=== PATIENT | female | born 1945 | race Caucasian/White ===

== ENCOUNTER 2017-10-02 21:47 | Inpatient (IN) | payer MEDICARE, MEDICAID ==
[~2017-10-02] VITALS: Ht 157.5 cm; Wt 72.0 kg
[~2017-10-02 21:47] MED LIST: ATOR40TA71 PO; DONE23TA7 PO; FLUO10CA28 PO; FLUT1BLS3 PO; FURO-150 PO; GABA-338 PO; KEP500T PO; MONT10TA21 PO; ONDA4TAB6 PO; OXYB5TAB29 PO; PRIM50TA PO; SOTA80TA73 PO; SUMA50TA PO; TIOT18CA7 IH
[2017-10-02] MEDS ORDERED: normal saline 1000ML IV soln IV ONE (22:00)
[2017-10-02] MEDS ORDERED: TRIAMCINOLONE 55 MCG (22:03)
[2017-10-02] MEDS ORDERED: PREDNISONE 20 MG (22:03)
[2017-10-02] MEDS ORDERED: OXYBUTYNIN CHLORIDE 5 MG (22:03)
[2017-10-02] MEDS ORDERED: ONDANSETRON HCL 4 MG (22:03)
[2017-10-02] MEDS ORDERED: LEVETIRACETAM 500 MG (22:03)
[2017-10-02] MEDS ORDERED: APAP (22:03)
[2017-10-02] MEDS ORDERED: MONTELUKAST SODIUM 10 MG (22:03)
[2017-10-02] MEDS ORDERED: ATORVASTATIN CALCIUM 40 MG (22:03)
[2017-10-02] MEDS ORDERED: PANTOPRAZOLE SODIUM 40 MG (22:03)
[2017-10-02] MEDS ORDERED: OXYCODONE (22:03)
[2017-10-02] MEDS ORDERED: FLUOXETINE HCL 20 MG (22:03)
[2017-10-02] MEDS ORDERED: SUMATRIPTAN SUCCINAT (22:03)
[2017-10-02] MEDS ORDERED: MULTAQ 400 MG (22:03)
[2017-10-02] MEDS ORDERED: adenosine 3mg/ml 2ml vial IV ONE ×2 (22:10)
[2017-10-02 22:34] LABS: EOSINOPHILS # (AUTO) 0.3 X10'3 (0-0.9); HEMOGLOBIN 11.5 g/dl (12.0-16.0); LYMPHOCYTES # (AUTO) 1.8 X10'3 (1.1-4.8); NEUTROPHILS # (AUTO) 8.2 X10'3 (1.8-7.7); NEUTROPHILS % (AUTO) 72.1 % (42-75); RED BLOOD COUNT 4.53 X10'6 (4.20-5.60); WHITE BLOOD COUNT 11.4 X10'3 (4.5-11.0)
[2017-10-02 22:37] LABS: BASOPHILS % (AUTO) 0.4 % (0-1); EOSINOPHILS % (AUTO) 2.9 % (0-6); LYMPHOCYTES % (AUTO) 15.4 % (21-51); MEAN CORPUSCULAR HEMOGLOBIN 25.3 PG (27.0-31.0); MEAN CORPUSCULAR HGB CONC 32.8 % (33.0-36.5); MEAN CORPUSCULAR VOLUME 77.2 FL (78-98); MEAN PLATELET VOLUME 8.8 FL (7.4-10.4); MONOCYTES % (AUTO) 9.2 % (2-12); PLATELET COUNT 180 X10'3 (140-440); RED CELL DISTRIBUTION WIDTH 19.5 % (11.5-14.5)
[2017-10-02 22:43] LABS: INR 1.3 INR; PARTIAL THROMBOPLASTIN TIME 26 SECONDS (22-32); PROTHROMBIN TIME 13.7 SECONDS (9.0-12.0)
[2017-10-02 22:47] LABS: ANION GAP 11 (8-16); BILIRUBIN,TOTAL 0.2 MG/DL (0.1-1.0); BLOOD UREA NITROGEN 3 MG/DL (7-18); BUN/CREATININE RATIO 5.5 (6.6-38.0); CALCIUM 8.2 MG/DL (8.5-10.1); CHLORIDE 104 MMOL/L (99-107); CREATININE 0.55 MG/DL (0.40-0.90); GLUCOSE 104 MG/DL (70-104); MAGNESIUM 1.4 MG/DL (1.5-2.4); POTASSIUM 3.6 MMOL/L (3.5-5.1); SODIUM 139 MMOL/L (135-145); TOTAL CARBON DIOXIDE 23.9 MMOL/L (24-32); TOTAL PROTEIN 6.6 G/DL (6.4-8.2); eGFR > 90 ML/MIN
[2017-10-02 22:48] LABS: ALANINE AMINOTRANSFERASE 18 U/L (12-78); ALBUMIN 2.3 G/DL (3.4-5.0); ALBUMIN/GLOBULIN RATIO 0.5 (1.1-1.5); ALKALINE PHOSPHATASE 70 IU/L (46-116); ASPARTATE AMINO TRANSFERASE 29 U/L (10-37)
[2017-10-02 23:01] LABS: CLARITY,URINE CLEAR (Clear); COLOR,URINE YELLOW (Yellow); GLUCOSE, URINE NEGATIVE (Neg); KETONES,URINE >=80 mg/dl (Neg); LEUKOCYTE ESTERASE ,URINE NEGATIVE (Neg); NITRITES, URINE NEGATIVE (Neg); OCCULT BLOOD,URINE NEGATIVE (Neg); PROTEIN,URINE NEGATIVE (Neg); UROBILINOGEN,URINE 0.2 E.U/dL (0.2-1.0)
[2017-10-02 23:02] LABS: UA COLLECTION TYPE FOLEY CATH
[2017-10-03] MEDS ORDERED: DIPH25CA83 PO (00:20)
[2017-10-03] MEDS ORDERED: FERR-116 PO (00:20)
[2017-10-03] MEDS ORDERED: NA P133E4 RC (00:20)
[2017-10-03] MEDS ORDERED: FLUO20CA39 PO (00:20)
[2017-10-03] MEDS ORDERED: MAGN100T5 (00:20)
[2017-10-03] MEDS ORDERED: ATR0.5NEB NEB (00:20)
[2017-10-03] MEDS ORDERED: LACTC PO (00:20)
[2017-10-03] MEDS ORDERED: MAGN400O6 PO (00:20)
[2017-10-03] MEDS ORDERED: UMEC62.5 (00:20)
[2017-10-03] MEDS ORDERED: DULR RC (00:20)
[2017-10-03] MEDS ORDERED: MULT-1085 PO (00:28)
[2017-10-03] MEDS ORDERED: VANC1VIA21 IV (00:28)
[2017-10-03] MEDS ORDERED: ASCO500C15 PO (00:28)
[2017-10-03] MEDS ORDERED: CHOL4PAC19 (00:28)
[2017-10-03] MEDS ORDERED: FAMO-128 PO (00:28)
[2017-10-03] MEDS ORDERED: OXYC-145 PO (00:28)
[2017-10-03] MEDS ORDERED: VANC50SO PO (00:36)
[2017-10-03] MEDS ORDERED: levoFLOXACIN-Levaquin 750MG/D5 150 ML IV STA (01:06)
[2017-10-03] MEDS ORDERED: ondansetron/PF 4mg/2ml inj IV ONE (01:10)
[2017-10-03] MEDS ORDERED: normal saline 1000ml 1,000 ML IV SCH (01:43)
[2017-10-03] MEDS ORDERED: magnesium hydroxide 30ml (MOM) UD suspension PO PRN (01:45)
[2017-10-03] MEDS ORDERED: mag hydrox/Alum hydrox/simeth 30ml oral suspension PO PRN (01:45)
[2017-10-03] MEDS ORDERED: ondansetron/PF 4mg/2ml inj IV PRN (01:45)
[2017-10-03] MEDS ORDERED: acetaminophen 325mg tablet PO PRN (01:45)
[2017-10-03] MEDS ORDERED: vancomycin/NS 1 GM ADD-VANTAGE 250 ML IV ONE (02:15)
[2017-10-03 03:00] VITALS: BP 148/79
[2017-10-03] MEDS: oxyCODONE/APAP 5-325mg tablet PO SCH ×4 (03:51→19:52)
[2017-10-03 06:00] VITALS: BP 138/71
[2017-10-03] MEDS ORDERED: vancomycin 1,000mg inj IV SCH (08:00)
[2017-10-03] MEDS ORDERED: ipratropium 0.5 MG/2.5ML nebule IH SCH (08:00)
[2017-10-03] MEDS ORDERED: vancomycin 250MG/10ML UD oral solution 10ML BOTTLE PO SCH (08:00)
[2017-10-03] MEDS ORDERED: vancomcyin 250mg capsules PO SCH (08:00)
[2017-10-03] MEDS: sotalol 80mg tablet PO SCH ×2 (08:03→19:53)
[2017-10-03] MEDS: vancomycin/NS 1 GM ADD-VANTAGE 250 ML IV SCH ×2 (08:03→19:41)
[2017-10-03] MEDS: heparin, porcine 5000 units/ml vial SQ SCH ×2 (08:04→19:53)
[2017-10-03] MEDS: FLUoxetine 20mg capsule PO SCH (08:04)
[2017-10-03] MEDS: famotidine 20mg tablet PO SCH (08:04)
[2017-10-03] MEDS: levetiracetam 250mg tablet PO SCH ×2 (08:05→19:49)
[2017-10-03] MEDS: lactobacillus rhamnosus 10,000 MMU CELLS/CAPSULE PO SCH ×2 (08:05→19:51)
[2017-10-03] MEDS: oxybutynin 5mg tablet PO SCH ×2 (08:05→19:50)
[2017-10-03] MEDS: vancomcyin 250mg capsules PO SCH ×3 (08:09→19:51)
[2017-10-03] MEDS: methylPREDNISolone sod succ 125mg/2ml vial IV SCH ×3 (08:10→19:53)
[2017-10-03] MEDS: metroNIDAZOLE-Flagyl 500mg/NS 100 ML IV SCH ×2 (08:10→15:15)
[2017-10-03] MEDS: metoclopramide 5 mg/ml inj IV PRN ×3 (08:43→22:08)
[2017-10-03] MEDS ORDERED: UMEC62.5 IH (08:53)
[2017-10-03] MEDS ORDERED: MAGN400C PO (09:07)
[2017-10-03] MEDS ORDERED: adenosine 3mg/ml 2ml vial IV ONE (10:00)
[2017-10-03 11:00] VITALS: BP 136/68
[2017-10-03] MEDS: ipratropium/albuterol 3ml nebule NEB SCH ×4 (11:00→23:00)
[2017-10-03] MEDS: ondansetron/PF 4mg/2ml inj IV PRN ×2 (11:55→19:40)
[2017-10-03] MEDS: SUMAtriptan 25 MG tablet PO PRN (14:55)
[2017-10-03 15:00] VITALS: BP 170/76
[2017-10-03 19:00] VITALS: BP 151/78
[2017-10-03] MEDS: primidone 50mg tablet PO SCH (20:07)
[2017-10-03] MEDS: atorvastatin 20mg tablet PO SCH (20:07)
[2017-10-03] MEDS: montelukast 10mg tablet PO SCH (20:07)
[2017-10-03 21:00] VITALS: BP 153/81
[2017-10-03] MEDS ORDERED: sotalol 80mg tablet PO ONE (21:55)
[2017-10-04] MEDS: metroNIDAZOLE-Flagyl 500mg/NS 100 ML IV SCH ×3 (00:59→16:37)
[2017-10-04] MEDS: ondansetron/PF 4mg/2ml inj IV PRN ×2 (02:31→20:29)
[2017-10-04] MEDS: Potassium Cl inj 20 MEQ in normal saline 1000ml 1,000 ML IV SCH ×2 (02:31→14:21)
[2017-10-04] MEDS: vancomcyin 250mg capsules PO SCH ×4 (02:32→23:21)
[2017-10-04] MEDS: methylPREDNISolone sod succ 125mg/2ml vial IV SCH ×3 (02:32→13:28)
[2017-10-04] MEDS: oxyCODONE/APAP 5-325mg tablet PO SCH ×4 (02:33→20:29)
[2017-10-04 02:48] VITALS: BP 144/77
[2017-10-04] MEDS: metoclopramide 5 mg/ml inj IV PRN ×4 (05:15→22:58)
[2017-10-04] MEDS: SUMAtriptan 25 MG tablet PO PRN ×2 (05:16→14:38)
[2017-10-04 05:30] LABS: BASOPHILS % (AUTO) 0.2 % (0-1); EOSINOPHILS # (AUTO) 0.1 X10'3 (0-0.9); EOSINOPHILS % (AUTO) 0.8 % (0-6); HEMATOCRIT 33.9 % (35.0-45.0); HEMOGLOBIN 10.8 g/dl (12.0-16.0); LYMPHOCYTES # (AUTO) 1.2 X10'3 (1.1-4.8); MEAN CORPUSCULAR HEMOGLOBIN 24.8 PG (27.0-31.0); MEAN CORPUSCULAR HGB CONC 31.8 % (33.0-36.5); MEAN CORPUSCULAR VOLUME 77.9 FL (78-98); MEAN PLATELET VOLUME 8.6 FL (7.4-10.4); MONOCYTES # (AUTO) 0.3 X10'3 (0-0.9); NEUTROPHILS # (AUTO) 6.2 X10'3 (1.8-7.7); PLATELET COUNT 181 X10'3 (140-440); RED BLOOD COUNT 4.35 X10'6 (4.20-5.60); WHITE BLOOD COUNT 7.7 X10'3 (4.5-11.0)
[2017-10-04 06:00] VITALS: BP 140/75
[2017-10-04 06:12] LABS: ALANINE AMINOTRANSFERASE 17 U/L (12-78); ALBUMIN 2.2 G/DL (3.4-5.0); ALBUMIN/GLOBULIN RATIO 0.5 (1.1-1.5); ALKALINE PHOSPHATASE 60 IU/L (46-116); ANION GAP 11 (8-16); ASPARTATE AMINO TRANSFERASE 20 U/L (10-37); BILIRUBIN,TOTAL 0.2 MG/DL (0.1-1.0); BLOOD UREA NITROGEN 5 MG/DL (7-18); BUN/CREATININE RATIO 9.1 (6.6-38.0); CALCIUM 8.5 MG/DL (8.5-10.1); CHLORIDE 107 MMOL/L (99-107); CREATININE 0.55 MG/DL (0.40-0.90); GLUCOSE 110 MG/DL (70-104); POTASSIUM 3.8 MMOL/L (3.5-5.1); SODIUM 142 MMOL/L (135-145); TOTAL CARBON DIOXIDE 24.2 MMOL/L (24-32); TOTAL PROTEIN 6.3 G/DL (6.4-8.2); eGFR > 90 ML/MIN
[2017-10-04] MEDS: ipratropium/albuterol 3ml nebule NEB SCH ×4 (07:00→23:00)
[2017-10-04] MEDS: lactobacillus rhamnosus 10,000 MMU CELLS/CAPSULE PO SCH ×2 (07:32→22:58)
[2017-10-04] MEDS: oxybutynin 5mg tablet PO SCH ×2 (07:32→23:21)
[2017-10-04] MEDS: FLUoxetine 20mg capsule PO SCH (07:32)
[2017-10-04] MEDS: famotidine 20mg tablet PO SCH (07:32)
[2017-10-04] MEDS: sotalol 80mg tablet PO SCH ×2 (07:32→22:59)
[2017-10-04] MEDS: levetiracetam 250mg tablet PO SCH ×2 (07:33→23:00)
[2017-10-04] MEDS: heparin, porcine 5000 units/ml vial SQ SCH ×2 (07:35→23:25)
[2017-10-04] MEDS: vancomycin/NS 1 GM ADD-VANTAGE 250 ML IV SCH ×2 (07:35→20:30)
[2017-10-04] MEDS ORDERED: sotalol 80mg tablet PO SCH (08:00)
[2017-10-04 11:00] VITALS: BP 121/63
[2017-10-04 15:00] VITALS: BP 166/78
[2017-10-04] MEDS: predniSONE 20 mg tablet PO SCH (16:37)
[2017-10-04] MEDS: chloestyramine/aspartame 4gm packet PO SCH ×2 (16:37→21:00)
[2017-10-04] MEDS ORDERED: VANCOMYCIN LEVEL IV ONE (18:30)
[2017-10-04 22:00] VITALS: BP 152/77
[2017-10-04] MEDS: atorvastatin 20mg tablet PO SCH (22:59)
[2017-10-04] MEDS: montelukast 10mg tablet PO SCH (23:00)
[2017-10-04] MEDS: primidone 50mg tablet PO SCH (23:22)
[2017-10-05] MEDS: metroNIDAZOLE-Flagyl 500mg/NS 100 ML IV SCH ×2 (00:48→07:22)
[2017-10-05] MEDS: oxyCODONE/APAP 5-325mg tablet PO SCH ×4 (02:00→19:54)
[2017-10-05] MEDS: vancomcyin 250mg capsules PO SCH ×4 (02:00→19:52)
[2017-10-05] MEDS: Potassium Cl inj 20 MEQ in normal saline 1000ml 1,000 ML IV SCH ×2 (02:59→15:37)
[2017-10-05 03:00] VITALS: BP 147/77
[2017-10-05] MEDS: ipratropium/albuterol 3ml nebule NEB SCH ×4 (03:00→23:00)
[2017-10-05 05:15] LABS: BASOPHILS % (AUTO) 0.2 % (0-1); EOSINOPHILS # (AUTO) 0.1 X10'3 (0-0.9); EOSINOPHILS % (AUTO) 0.7 % (0-6); HEMATOCRIT 30.8 % (35.0-45.0); LYMPHOCYTES # (AUTO) 1.7 X10'3 (1.1-4.8); LYMPHOCYTES % (AUTO) 14.2 % (21-51); MEAN CORPUSCULAR HGB CONC 32.4 % (33.0-36.5); MEAN CORPUSCULAR VOLUME 77.4 FL (78-98); MONOCYTES # (AUTO) 0.8 X10'3 (0-0.9); MONOCYTES % (AUTO) 6.7 % (2-12); NEUTROPHILS # (AUTO) 9.4 X10'3 (1.8-7.7); NEUTROPHILS % (AUTO) 78.2 % (42-75); PLATELET COUNT 200 X10'3 (140-440); RED BLOOD COUNT 3.98 X10'6 (4.20-5.60); WHITE BLOOD COUNT 12.1 X10'3 (4.5-11.0)
[2017-10-05 05:29] LABS: ALANINE AMINOTRANSFERASE 17 U/L (12-78); ALBUMIN 2.1 G/DL (3.4-5.0); ALBUMIN/GLOBULIN RATIO 0.6 (1.1-1.5); ALKALINE PHOSPHATASE 49 IU/L (46-116); ANION GAP 10 (8-16); ASPARTATE AMINO TRANSFERASE 21 U/L (10-37); BILIRUBIN,TOTAL 0.2 MG/DL (0.1-1.0); BLOOD UREA NITROGEN 9 MG/DL (7-18); BUN/CREATININE RATIO 15.8 (6.6-38.0); CALCIUM 8.2 MG/DL (8.5-10.1); CHLORIDE 110 MMOL/L (99-107); CREATININE 0.57 MG/DL (0.40-0.90); GLUCOSE 89 MG/DL (70-104); POTASSIUM 3.5 MMOL/L (3.5-5.1); SODIUM 144 MMOL/L (135-145); TOTAL CARBON DIOXIDE 23.7 MMOL/L (24-32); TOTAL PROTEIN 5.7 G/DL (6.4-8.2); eGFR > 90 ML/MIN
[2017-10-05 06:00] VITALS: BP 159/76
[2017-10-05] MEDS: lactobacillus rhamnosus 10,000 MMU CELLS/CAPSULE PO SCH ×2 (07:20→19:52)
[2017-10-05] MEDS: sotalol 80mg tablet PO SCH ×2 (07:20→19:54)
[2017-10-05] MEDS: FLUoxetine 20mg capsule PO SCH (07:20)
[2017-10-05] MEDS: famotidine 20mg tablet PO SCH (07:20)
[2017-10-05] MEDS: oxybutynin 5mg tablet PO SCH ×2 (07:20→19:54)
[2017-10-05] MEDS: levetiracetam 250mg tablet PO SCH ×2 (07:21→19:52)
[2017-10-05] MEDS: heparin, porcine 5000 units/ml vial SQ SCH ×2 (07:22→19:51)
[2017-10-05] MEDS: vancomycin/NS 1 GM ADD-VANTAGE 250 ML IV SCH (07:23)
[2017-10-05] MEDS: predniSONE 20 mg tablet PO SCH (07:27)
[2017-10-05] MEDS: metoclopramide 5 mg/ml inj IV PRN ×2 (07:55→19:48)
[2017-10-05] MEDS: chloestyramine/aspartame 4gm packet PO SCH ×3 (08:00→20:15)
[2017-10-05 11:00] VITALS: BP 147/81
[2017-10-05] MEDS: vancomycin inj 1,250 MG in normal saline 250ml IV soln 250 ML IV SCH ×2 (11:00→23:21)
[2017-10-05] MEDS: SUMAtriptan 25 MG tablet PO PRN (14:25)
[2017-10-05 15:00] VITALS: BP 164/77
[2017-10-05] MEDS: metroNIDAZOLE 500mg tablet PO SCH ×2 (16:35→23:20)
[2017-10-05 19:00] VITALS: BP 167/85
[2017-10-05] MEDS: atorvastatin 20mg tablet PO SCH (20:17)
[2017-10-05] MEDS: primidone 50mg tablet PO SCH (20:18)
[2017-10-05] MEDS: montelukast 10mg tablet PO SCH (20:18)
[2017-10-05 23:00] VITALS: BP 149/72
[2017-10-05] MEDS: diphenhydrAMINE 25mg capsule PO PRN (23:20)
[2017-10-06] MEDS: vancomcyin 250mg capsules PO SCH ×4 (02:08→19:14)
[2017-10-06] MEDS: oxyCODONE/APAP 5-325mg tablet PO SCH ×4 (02:09→19:15)
[2017-10-06 03:00] VITALS: BP 164/75
[2017-10-06] MEDS: ipratropium/albuterol 3ml nebule NEB SCH ×6 (03:00→23:00)
[2017-10-06 06:00] VITALS: BP 152/77
[2017-10-06] MEDS: Potassium Cl inj 20 MEQ in normal saline 1000ml 1,000 ML IV SCH ×2 (06:00→22:01)
[2017-10-06] MEDS: lactobacillus rhamnosus 10,000 MMU CELLS/CAPSULE PO SCH ×2 (07:56→19:15)
[2017-10-06] MEDS: oxybutynin 5mg tablet PO SCH ×2 (07:56→19:15)
[2017-10-06] MEDS: sotalol 80mg tablet PO SCH ×2 (07:56→19:15)
[2017-10-06] MEDS: levetiracetam 250mg tablet PO SCH ×2 (07:56→19:15)
[2017-10-06] MEDS: FLUoxetine 20mg capsule PO SCH (07:56)
[2017-10-06] MEDS: famotidine 20mg tablet PO SCH (07:56)
[2017-10-06] MEDS: metroNIDAZOLE 500mg tablet PO SCH ×2 (07:56→15:08)
[2017-10-06] MEDS: heparin, porcine 5000 units/ml vial SQ SCH ×2 (07:58→19:14)
[2017-10-06] MEDS: chloestyramine/aspartame 4gm packet PO SCH ×3 (08:00→21:53)
[2017-10-06] MEDS: metoclopramide 5 mg/ml inj IV PRN ×2 (08:04→19:14)
[2017-10-06] MEDS ORDERED: predniSONE 20 mg tablet PO SCH (08:30)
[2017-10-06 09:57] LABS: BASOPHILS # (AUTO) 0.1 X10'3 (0-0.2); BASOPHILS % (AUTO) 1.8 % (0-1); EOSINOPHILS # (AUTO) 0.1 X10'3 (0-0.9); HEMOGLOBIN 10.7 g/dl (12.0-16.0); LYMPHOCYTES # (AUTO) 1.8 X10'3 (1.1-4.8); LYMPHOCYTES % (AUTO) 23.8 % (21-51); MEAN CORPUSCULAR HEMOGLOBIN 24.9 PG (27.0-31.0); MEAN CORPUSCULAR HGB CONC 31.4 % (33.0-36.5); MEAN CORPUSCULAR VOLUME 79.4 FL (78-98); MEAN PLATELET VOLUME 8.9 FL (7.4-10.4); MONOCYTES # (AUTO) 0.8 X10'3 (0-0.9); MONOCYTES % (AUTO) 10.1 % (2-12); NEUTROPHILS % (AUTO) 63.3 % (42-75); PLATELET COUNT 150 X10'3 (140-440); RED BLOOD COUNT 4.28 X10'6 (4.20-5.60); RED CELL DISTRIBUTION WIDTH 19.8 % (11.5-14.5); WHITE BLOOD COUNT 7.8 X10'3 (4.5-11.0)
[2017-10-06 10:27] LABS: ALANINE AMINOTRANSFERASE 21 U/L (12-78); ALBUMIN 2.1 G/DL (3.4-5.0); ALBUMIN/GLOBULIN RATIO 0.6 (1.1-1.5); ALKALINE PHOSPHATASE 50 IU/L (46-116); ANION GAP 5 (8-16); ASPARTATE AMINO TRANSFERASE 28 U/L (10-37); BILIRUBIN,TOTAL 0.2 MG/DL (0.1-1.0); BLOOD UREA NITROGEN 5 MG/DL (7-18); BUN/CREATININE RATIO 9.4 (6.6-38.0); CALCIUM 7.6 MG/DL (8.5-10.1); CHLORIDE 108 MMOL/L (99-107); CREATININE 0.53 MG/DL (0.40-0.90); GLUCOSE 91 MG/DL (70-104); POTASSIUM 3.2 MMOL/L (3.5-5.1); SODIUM 140 MMOL/L (135-145); TOTAL CARBON DIOXIDE 26.6 MMOL/L (24-32); TOTAL PROTEIN 5.8 G/DL (6.4-8.2); eGFR > 90 ML/MIN
[2017-10-06 11:00] VITALS: BP 149/76
[2017-10-06] MEDS: vancomycin inj 1,250 MG in normal saline 250ml IV soln 250 ML IV SCH (11:16)
[2017-10-06 15:00] VITALS: BP 171/87
[2017-10-06] MEDS: SUMAtriptan 25 MG tablet PO PRN (15:09)
[2017-10-06 19:00] VITALS: BP 185/92
[2017-10-06] MEDS: primidone 50mg tablet PO SCH (21:52)
[2017-10-06] MEDS: montelukast 10mg tablet PO SCH (21:53)
[2017-10-06] MEDS: atorvastatin 20mg tablet PO SCH (21:53)
[2017-10-06] MEDS ORDERED: VANCOMYCIN LEVEL IV ONE (22:30)
[2017-10-06] MEDS: diphenhydrAMINE 25mg capsule PO PRN (22:30)
[2017-10-06 23:00] VITALS: BP 150/75
[2017-10-07] MEDS: ipratropium/albuterol 3ml nebule NEB SCH ×6 (00:12→23:00)
[2017-10-07] MEDS: metoclopramide 5 mg/ml inj IV PRN ×2 (01:09→17:33)
[2017-10-07] MEDS: vancomcyin 250mg capsules PO SCH ×4 (01:10→20:25)
[2017-10-07] MEDS: oxyCODONE/APAP 5-325mg tablet PO SCH ×4 (01:10→20:27)
[2017-10-07] MEDS: metroNIDAZOLE 500mg tablet PO SCH ×3 (01:10→15:28)
[2017-10-07 03:00] VITALS: BP 142/76
[2017-10-07] MEDS: ondansetron/PF 4mg/2ml inj IV PRN ×2 (05:13→20:25)
[2017-10-07] MEDS: SUMAtriptan 25 MG tablet PO PRN ×2 (05:15→20:51)
[2017-10-07] MEDS: Potassium Cl inj 20 MEQ in normal saline 1000ml 1,000 ML IV SCH (05:31)
[2017-10-07 05:40] LABS: ALANINE AMINOTRANSFERASE 20 U/L (12-78); ALBUMIN 2.1 G/DL (3.4-5.0); ALBUMIN/GLOBULIN RATIO 0.5 (1.1-1.5); ALKALINE PHOSPHATASE 49 IU/L (46-116); ANION GAP 8 (8-16); ASPARTATE AMINO TRANSFERASE 26 U/L (10-37); BILIRUBIN,TOTAL 0.2 MG/DL (0.1-1.0); BLOOD UREA NITROGEN 4 MG/DL (7-18); BUN/CREATININE RATIO 7.5 (6.6-38.0); CALCIUM 7.9 MG/DL (8.5-10.1); CHLORIDE 105 MMOL/L (99-107); CREATININE 0.53 MG/DL (0.40-0.90); GLUCOSE 83 MG/DL (70-104); POTASSIUM 3.1 MMOL/L (3.5-5.1); SODIUM 140 MMOL/L (135-145); TOTAL CARBON DIOXIDE 27.2 MMOL/L (24-32); eGFR > 90 ML/MIN
[2017-10-07 06:00] VITALS: BP 165/85
[2017-10-07] MEDS: FLUoxetine 20mg capsule PO SCH (07:41)
[2017-10-07] MEDS: lactobacillus rhamnosus 10,000 MMU CELLS/CAPSULE PO SCH ×2 (07:42→20:25)
[2017-10-07] MEDS: sotalol 80mg tablet PO SCH ×2 (07:42→20:23)
[2017-10-07] MEDS: famotidine 20mg tablet PO SCH (07:42)
[2017-10-07] MEDS: oxybutynin 5mg tablet PO SCH ×2 (07:42→20:18)
[2017-10-07] MEDS: heparin, porcine 5000 units/ml vial SQ SCH ×2 (07:43→20:21)
[2017-10-07] MEDS: levetiracetam 250mg tablet PO SCH ×2 (07:43→20:24)
[2017-10-07] MEDS: chloestyramine/aspartame 4gm packet PO SCH ×3 (08:00→20:18)
[2017-10-07] MEDS ORDERED: prednisone 10mg tablet PO SCH (08:30)
[2017-10-07 11:00] VITALS: BP 137/81
[2017-10-07] MEDS ORDERED: potassium Cl 20 mEq SR tablet PO PRN (12:45)
[2017-10-07] MEDS ORDERED: magnesium Cl slow-release 64mg tablet PO PRN (12:45)
[2017-10-07] MEDS ORDERED: potassium Cl 40MEQ/NS 500ml 500 ML IV PRN ×2 (12:45)
[2017-10-07] MEDS ORDERED: magnesium 4gm in 100ml NS 100 ML IV PRN (12:45)
[2017-10-07] MEDS ORDERED: magnesium/D5W IVPB 100 ML IV PRN (12:45)
[2017-10-07] MEDS: amLODIPine 5mg tablet PO SCH (14:02)
[2017-10-07] MEDS: potassium cl 20mEq in 1/2 NS 1,000 ML IV SCH (14:03)
[2017-10-07 15:00] VITALS: BP 138/80
[2017-10-07] MEDS: potassium Cl 20 mEq SR tablet PO PRN ×2 (17:33→21:55)
[2017-10-07 19:00] VITALS: BP 148/90
[2017-10-07] MEDS: primidone 50mg tablet PO SCH (20:22)
[2017-10-07] MEDS: montelukast 10mg tablet PO SCH (20:24)
[2017-10-07] MEDS: atorvastatin 20mg tablet PO SCH (20:25)
[2017-10-07 23:00] VITALS: BP 150/78
[2017-10-08] MEDS: metroNIDAZOLE 500mg tablet PO SCH ×3 (01:12→16:51)
[2017-10-08] MEDS: vancomcyin 250mg capsules PO SCH ×4 (01:12→20:44)
[2017-10-08] MEDS: oxyCODONE/APAP 5-325mg tablet PO SCH ×4 (01:12→20:44)
[2017-10-08] MEDS: potassium Cl 20 mEq SR tablet PO PRN (01:12)
[2017-10-08 03:00] VITALS: BP 141/71
[2017-10-08] MEDS: ipratropium/albuterol 3ml nebule NEB SCH ×6 (03:00→23:00)
[2017-10-08] MEDS: potassium cl 20mEq in 1/2 NS 1,000 ML IV SCH ×3 (05:06→20:53)
[2017-10-08 05:47] LABS: ALANINE AMINOTRANSFERASE 19 U/L (12-78); ALBUMIN 2.2 G/DL (3.4-5.0); ALBUMIN/GLOBULIN RATIO 0.6 (1.1-1.5); ALKALINE PHOSPHATASE 49 IU/L (46-116); ANION GAP 7 (8-16); ASPARTATE AMINO TRANSFERASE 24 U/L (10-37); BILIRUBIN,TOTAL 0.2 MG/DL (0.1-1.0); BLOOD UREA NITROGEN 5 MG/DL (7-18); BUN/CREATININE RATIO 9.6 (6.6-38.0); CALCIUM 7.8 MG/DL (8.5-10.1); CHLORIDE 106 MMOL/L (99-107); CREATININE 0.52 MG/DL (0.40-0.90); GLUCOSE 88 MG/DL (70-104); MAGNESIUM 1.7 MG/DL (1.5-2.4); SODIUM 139 MMOL/L (135-145); TOTAL CARBON DIOXIDE 25.8 MMOL/L (24-32); TOTAL PROTEIN 5.9 G/DL (6.4-8.2); eGFR > 90 ML/MIN
[2017-10-08 06:00] VITALS: BP 148/83
[2017-10-08] MEDS: FLUoxetine 20mg capsule PO SCH (07:52)
[2017-10-08] MEDS: levetiracetam 250mg tablet PO SCH ×2 (07:52→20:46)
[2017-10-08] MEDS: oxybutynin 5mg tablet PO SCH ×2 (07:52→20:44)
[2017-10-08] MEDS: amLODIPine 5mg tablet PO SCH (07:52)
[2017-10-08] MEDS: sotalol 80mg tablet PO SCH ×2 (07:52→20:44)
[2017-10-08] MEDS: lactobacillus rhamnosus 10,000 MMU CELLS/CAPSULE PO SCH ×2 (07:53→20:46)
[2017-10-08] MEDS: predniSONE 5mg tablet PO SCH (07:53)
[2017-10-08] MEDS: ondansetron/PF 4mg/2ml inj IV PRN ×2 (07:54→16:51)
[2017-10-08] MEDS: chloestyramine/aspartame 4gm packet PO SCH ×3 (07:54→20:38)
[2017-10-08] MEDS: heparin, porcine 5000 units/ml vial SQ SCH ×2 (07:54→20:43)
[2017-10-08] MEDS: famotidine 20mg tablet PO SCH (08:04)
[2017-10-08 11:00] VITALS: BP 145/74
[2017-10-08] MEDS: metoclopramide 5 mg/ml inj IV PRN ×2 (11:52→20:43)
[2017-10-08] MEDS ORDERED: morphine 4 MG/ML inj SYRINge IV PRN (12:05)
[2017-10-08] MEDS: SUMAtriptan 25 MG tablet PO PRN ×2 (13:38→21:16)
[2017-10-08 15:00] VITALS: BP 151/68
[2017-10-08 19:00] VITALS: BP 153/67
[2017-10-08] MEDS: diatr meglu/diatrizoate 30ml oral sol.-(3 dose) bottle PO SCH (20:45)
[2017-10-08] MEDS: montelukast 10mg tablet PO SCH (20:46)
[2017-10-08] MEDS: primidone 50mg tablet PO SCH (20:46)
[2017-10-08] MEDS: atorvastatin 20mg tablet PO SCH (20:46)
[2017-10-08] MEDS ORDERED: ondansetron/PF 4mg/2ml inj IV PRN (22:15)
[2017-10-08] MEDS ORDERED: LORazepam 1 MG tablet PO PRN (22:25)
[2017-10-08 23:00] VITALS: BP 138/75
[2017-10-09] MEDS: pantoprazole 40 MG vial IV SCH ×3 (01:06→16:51)
[2017-10-09] MEDS: methylPREDNISolone sod succ 125mg/2ml vial IV SCH ×3 (01:07→16:51)
[2017-10-09] MEDS: vancomcyin 250mg capsules PO SCH ×4 (01:07→19:57)
[2017-10-09] MEDS: metroNIDAZOLE 500mg tablet PO SCH ×3 (01:07→16:51)
[2017-10-09] MEDS: oxyCODONE/APAP 5-325mg tablet PO SCH ×4 (01:19→19:56)
[2017-10-09 03:00] VITALS: BP 149/75
[2017-10-09] MEDS: ipratropium/albuterol 3ml nebule NEB SCH ×6 (03:00→23:00)
[2017-10-09] MEDS: diphenhydrAMINE 25mg capsule PO PRN (04:15)
[2017-10-09 05:33] LABS: BASOPHILS % (AUTO) 0 % (0-1); EOSINOPHILS # (AUTO) 0.1 X10'3 (0-0.9); EOSINOPHILS % (AUTO) 1.5 % (0-6); HEMATOCRIT 38.9 % (35.0-45.0); HEMOGLOBIN 12.7 g/dl (12.0-16.0); LYMPHOCYTES # (AUTO) 1.1 X10'3 (1.1-4.8); MEAN CORPUSCULAR HEMOGLOBIN 25.4 PG (27.0-31.0); MEAN CORPUSCULAR HGB CONC 32.6 % (33.0-36.5); MEAN CORPUSCULAR VOLUME 77.9 FL (78-98); MEAN PLATELET VOLUME 8.9 FL (7.4-10.4); MONOCYTES # (AUTO) 0.1 X10'3 (0-0.9); MONOCYTES % (AUTO) 1.2 % (2-12); NEUTROPHILS # (AUTO) 8.8 X10'3 (1.8-7.7); NEUTROPHILS % (AUTO) 86.3 % (42-75); PLATELET COUNT 227 X10'3 (140-440); WHITE BLOOD COUNT 10.1 X10'3 (4.5-11.0)
[2017-10-09 05:40] LABS: ALANINE AMINOTRANSFERASE 24 U/L (12-78); ALBUMIN 2.7 G/DL (3.4-5.0); ALBUMIN/GLOBULIN RATIO 0.7 (1.1-1.5); ALKALINE PHOSPHATASE 60 IU/L (46-116); ANION GAP 8 (8-16); ASPARTATE AMINO TRANSFERASE 24 U/L (10-37); BILIRUBIN,TOTAL 0.3 MG/DL (0.1-1.0); BLOOD UREA NITROGEN 3 MG/DL (7-18); BUN/CREATININE RATIO 4.6 (6.6-38.0); CALCIUM 8.7 MG/DL (8.5-10.1); CHLORIDE 104 MMOL/L (99-107); CREATININE 0.65 MG/DL (0.40-0.90); GLUCOSE 168 MG/DL (70-104); MAGNESIUM 1.5 MG/DL (1.5-2.4); POTASSIUM 4.6 MMOL/L (3.5-5.1); SODIUM 137 MMOL/L (135-145); TOTAL CARBON DIOXIDE 25.3 MMOL/L (24-32); TOTAL PROTEIN 6.8 G/DL (6.4-8.2); eGFR 89 ML/MIN
[2017-10-09 06:00] VITALS: BP 144/77
[2017-10-09] MEDS: chloestyramine/aspartame 4gm packet PO SCH ×3 (08:00→19:50)
[2017-10-09] MEDS: levetiracetam 250mg tablet PO SCH ×2 (08:09→19:55)
[2017-10-09] MEDS: diatr meglu/diatrizoate 30ml oral sol.-(3 dose) bottle PO SCH ×2 (08:09→09:15)
[2017-10-09] MEDS: famotidine 20mg tablet PO SCH (08:09)
[2017-10-09] MEDS: sotalol 80mg tablet PO SCH ×2 (08:09→19:53)
[2017-10-09] MEDS: amLODIPine 5mg tablet PO SCH (08:10)
[2017-10-09] MEDS: oxybutynin 5mg tablet PO SCH ×2 (08:10→19:52)
[2017-10-09] MEDS: FLUoxetine 20mg capsule PO SCH (08:10)
[2017-10-09] MEDS: lactobacillus rhamnosus 10,000 MMU CELLS/CAPSULE PO SCH ×2 (08:10→20:00)
[2017-10-09] MEDS: predniSONE 5mg tablet PO SCH (08:10)
[2017-10-09] MEDS: metoclopramide 5 mg/ml inj IV PRN ×2 (08:11→16:51)
[2017-10-09] MEDS: heparin, porcine 5000 units/ml vial SQ SCH ×2 (08:11→19:58)
[2017-10-09 12:35] VITALS: BP 131/79
[2017-10-09] MEDS: ondansetron/PF 4mg/2ml inj IV PRN (14:38)
[2017-10-09] MEDS: potassium cl 20mEq in 1/2 NS 1,000 ML IV SCH (14:38)
[2017-10-09 15:00] VITALS: BP 133/70
[2017-10-09 19:00] VITALS: BP 139/74
[2017-10-09] MEDS: primidone 50mg tablet PO SCH (19:53)
[2017-10-09] MEDS: proCHLORperazine 10 MG/2 ml inj IV PRN (19:54)
[2017-10-09] MEDS: montelukast 10mg tablet PO SCH (19:56)
[2017-10-09] MEDS: atorvastatin 20mg tablet PO SCH (19:56)
[2017-10-09] MEDS: SUMAtriptan 25 MG tablet PO PRN (20:33)
[2017-10-09 23:00] VITALS: BP 156/69
[2017-10-10] MEDS: pantoprazole 40 MG vial IV SCH ×3 (00:19→15:59)
[2017-10-10] MEDS: metoclopramide 5 mg/ml inj IV PRN ×2 (00:19→15:59)
[2017-10-10] MEDS: metroNIDAZOLE 500mg tablet PO SCH ×3 (00:19→15:59)
[2017-10-10] MEDS: methylPREDNISolone sod succ 125mg/2ml vial IV SCH ×3 (00:19→15:59)
[2017-10-10 03:00] VITALS: BP 133/68
[2017-10-10] MEDS: vancomcyin 250mg capsules PO SCH ×4 (03:16→20:33)
[2017-10-10] MEDS: potassium cl 20mEq in 1/2 NS 1,000 ML IV SCH ×2 (03:16→22:40)
[2017-10-10] MEDS: oxyCODONE/APAP 5-325mg tablet PO SCH ×4 (03:17→20:34)
[2017-10-10] MEDS: ondansetron/PF 4mg/2ml inj IV PRN ×2 (03:17→20:38)
[2017-10-10] MEDS: ipratropium/albuterol 3ml nebule NEB SCH ×6 (03:44→23:00)
[2017-10-10 05:28] LABS: BASOPHILS % (AUTO) 0 % (0-1); EOSINOPHILS % (AUTO) 0.1 % (0-6); HEMATOCRIT 36.5 % (35.0-45.0); HEMOGLOBIN 11.9 g/dl (12.0-16.0); LYMPHOCYTES % (AUTO) 5.9 % (21-51); MEAN CORPUSCULAR HEMOGLOBIN 25.5 PG (27.0-31.0); MEAN CORPUSCULAR HGB CONC 32.7 % (33.0-36.5); MEAN PLATELET VOLUME 9.1 FL (7.4-10.4); MONOCYTES # (AUTO) 0.2 X10'3 (0-0.9); MONOCYTES % (AUTO) 1.3 % (2-12); NEUTROPHILS # (AUTO) 15.9 X10'3 (1.8-7.7); NEUTROPHILS % (AUTO) 92.7 % (42-75); PLATELET COUNT 237 X10'3 (140-440); RED BLOOD COUNT 4.67 X10'6 (4.20-5.60); RED CELL DISTRIBUTION WIDTH 21.3 % (11.5-14.5); WHITE BLOOD COUNT 17.1 X10'3 (4.5-11.0)
[2017-10-10 05:42] LABS: ALANINE AMINOTRANSFERASE 21 U/L (12-78); ALBUMIN 2.5 G/DL (3.4-5.0); ALBUMIN/GLOBULIN RATIO 0.6 (1.1-1.5); ALKALINE PHOSPHATASE 52 IU/L (46-116); ANION GAP 9 (8-16); ASPARTATE AMINO TRANSFERASE 17 U/L (10-37); BILIRUBIN,TOTAL 0.3 MG/DL (0.1-1.0); BLOOD UREA NITROGEN 8 MG/DL (7-18); BUN/CREATININE RATIO 12.1 (6.6-38.0); CALCIUM 8.5 MG/DL (8.5-10.1); CHLORIDE 104 MMOL/L (99-107); CREATININE 0.66 MG/DL (0.40-0.90); GLUCOSE 146 MG/DL (70-104); MAGNESIUM 1.6 MG/DL (1.5-2.4); POTASSIUM 4.3 MMOL/L (3.5-5.1); SODIUM 139 MMOL/L (135-145); TOTAL CARBON DIOXIDE 26.5 MMOL/L (24-32); TOTAL PROTEIN 6.4 G/DL (6.4-8.2); eGFR 88 ML/MIN
[2017-10-10 06:00] VITALS: BP 119/64
[2017-10-10] MEDS: sotalol 80mg tablet PO SCH ×2 (08:56→20:35)
[2017-10-10] MEDS: amLODIPine 5mg tablet PO SCH (08:56)
[2017-10-10] MEDS: levetiracetam 250mg tablet PO SCH ×2 (08:56→20:35)
[2017-10-10] MEDS: lactobacillus rhamnosus 10,000 MMU CELLS/CAPSULE PO SCH ×2 (08:56→20:32)
[2017-10-10] MEDS: FLUoxetine 20mg capsule PO SCH (08:56)
[2017-10-10] MEDS: predniSONE 5mg tablet PO SCH (08:56)
[2017-10-10] MEDS: famotidine 20mg tablet PO SCH (08:56)
[2017-10-10] MEDS: heparin, porcine 5000 units/ml vial SQ SCH ×2 (08:57→20:38)
[2017-10-10] MEDS: chloestyramine/aspartame 4gm packet PO SCH ×3 (08:57→20:33)
[2017-10-10] MEDS: proCHLORperazine 10 MG/2 ml inj IV PRN (08:57)
[2017-10-10] MEDS: oxybutynin 5mg tablet PO SCH ×2 (08:58→20:33)
[2017-10-10 11:00] VITALS: BP 127/73
[2017-10-10] MEDS: SUMAtriptan 25 MG tablet PO PRN ×2 (13:11→22:32)
[2017-10-10 15:00] VITALS: BP 127/74
[2017-10-10 19:00] VITALS: BP 144/69
[2017-10-10] MEDS: montelukast 10mg tablet PO SCH (20:33)
[2017-10-10] MEDS: primidone 50mg tablet PO SCH (20:37)
[2017-10-10] MEDS: atorvastatin 20mg tablet PO SCH (20:48)
[2017-10-10 23:00] VITALS: BP 135/68
[2017-10-10] MEDS: diphenhydrAMINE 25mg capsule PO PRN (23:41)
[2017-10-11] MEDS: oxyCODONE/APAP 5-325mg tablet PO SCH ×3 (01:19→14:06)
[2017-10-11] MEDS: metroNIDAZOLE 500mg tablet PO SCH ×2 (01:20→08:28)
[2017-10-11] MEDS: vancomcyin 250mg capsules PO SCH ×3 (01:20→14:06)
[2017-10-11] MEDS: methylPREDNISolone sod succ 125mg/2ml vial IV SCH ×2 (01:20→08:28)
[2017-10-11] MEDS: pantoprazole 40 MG vial IV SCH ×2 (01:20→08:28)
[2017-10-11 03:00] VITALS: BP 146/67
[2017-10-11] MEDS: ipratropium/albuterol 3ml nebule NEB SCH ×3 (03:00→11:00)
[2017-10-11 06:00] VITALS: BP 140/76
[2017-10-11 07:15] LABS: BASOPHILS % (AUTO) 0.1 % (0-1); EOSINOPHILS % (AUTO) 0 % (0-6); HEMATOCRIT 35.4 % (35.0-45.0); HEMOGLOBIN 11.4 g/dl (12.0-16.0); LYMPHOCYTES # (AUTO) 0.9 X10'3 (1.1-4.8); LYMPHOCYTES % (AUTO) 5.4 % (21-51); MEAN CORPUSCULAR HEMOGLOBIN 25.1 PG (27.0-31.0); MEAN CORPUSCULAR HGB CONC 32.1 % (33.0-36.5); MEAN CORPUSCULAR VOLUME 78.4 FL (78-98); MEAN PLATELET VOLUME 8.9 FL (7.4-10.4); MONOCYTES # (AUTO) 0.1 X10'3 (0-0.9); MONOCYTES % (AUTO) 0.5 % (2-12); PLATELET COUNT 235 X10'3 (140-440); RED BLOOD COUNT 4.52 X10'6 (4.20-5.60); RED CELL DISTRIBUTION WIDTH 21.8 % (11.5-14.5)
[2017-10-11 07:34] LABS: ALANINE AMINOTRANSFERASE 18 U/L (12-78); ALBUMIN 2.4 G/DL (3.4-5.0); ALBUMIN/GLOBULIN RATIO 0.7 (1.1-1.5); ALKALINE PHOSPHATASE 49 IU/L (46-116); ANION GAP 7 (8-16); ASPARTATE AMINO TRANSFERASE 14 U/L (10-37); BILIRUBIN,TOTAL 0.3 MG/DL (0.1-1.0); BLOOD UREA NITROGEN 12 MG/DL (7-18); BUN/CREATININE RATIO 22.2 (6.6-38.0); CALCIUM 8.4 MG/DL (8.5-10.1); CHLORIDE 107 MMOL/L (99-107); CREATININE 0.54 MG/DL (0.40-0.90); GLUCOSE 142 MG/DL (70-104); MAGNESIUM 1.9 MG/DL (1.5-2.4); POTASSIUM 4.3 MMOL/L (3.5-5.1); SODIUM 140 MMOL/L (135-145); TOTAL CARBON DIOXIDE 26.2 MMOL/L (24-32); eGFR > 90 ML/MIN
[2017-10-11] MEDS: sotalol 80mg tablet PO SCH (07:56)
[2017-10-11] MEDS: chloestyramine/aspartame 4gm packet PO SCH ×3 (08:00→12:49)
[2017-10-11] MEDS: lactobacillus rhamnosus 10,000 MMU CELLS/CAPSULE PO SCH (08:27)
[2017-10-11] MEDS: SUMAtriptan 25 MG tablet PO PRN (08:27)
[2017-10-11] MEDS: levetiracetam 250mg tablet PO SCH (08:28)
[2017-10-11] MEDS: proCHLORperazine 10 MG/2 ml inj IV PRN (08:28)
[2017-10-11] MEDS: famotidine 20mg tablet PO SCH (08:28)
[2017-10-11] MEDS: heparin, porcine 5000 units/ml vial SQ SCH (08:28)
[2017-10-11] MEDS: oxybutynin 5mg tablet PO SCH (08:29)
[2017-10-11] MEDS: FLUoxetine 20mg capsule PO SCH (08:29)
[2017-10-11] MEDS: amLODIPine 5mg tablet PO SCH (08:29)
[2017-10-11] MEDS: predniSONE 5mg tablet PO SCH (08:29)
[2017-10-11 11:00] VITALS: BP 136/65
[2017-10-11] MEDS: metoclopramide 5 mg/ml inj IV PRN (13:16)
[2017-10-11] MEDS ORDERED: ipratropium/albuterol 3ml nebule NEB PRN (13:35)
[2017-10-11] MEDS: ondansetron/PF 4mg/2ml inj IV PRN (15:25)
== END 2017-10-11 15:45 | DRG 371 ==
LOC: ER 21:48 → ED HOLD 10-03 01:43 → PCU 3S 10-03 02:41
PROVIDERS: ADMIT Internal Medicine; ATTEND Family Medicine
DX: A04.72 Enterocolitis due to Clostridium difficile, not specified as recurrent (principal); E43 Unspecified severe protein-calorie malnutrition; J18.9 Pneumonia, unspecified organism; J44.1 Chronic obstructive pulmonary disease with (acute) exacerbation; I47.1 Supraventricular tachycardia; M48.50XA Collapsed vertebra, not elsewhere classified, site unspecified, initial encounter for fracture; R78.81 Bacteremia; J44.0 Chronic obstructive pulmonary disease with (acute) lower respiratory infection; K83.8 Other specified diseases of biliary tract; E11.9 Type 2 diabetes mellitus without complications; E78.00 Pure hypercholesterolemia, unspecified; E78.5 Hyperlipidemia, unspecified; G43.909 Migraine, unspecified, not intractable, without status migrainosus; E86.0 Dehydration; E87.6 Hypokalemia; F03.90 Unspecified dementia, unspecified severity, without behavioral disturbance, psychotic disturbance, mood disturbance, and anxiety; F32.9 Major depressive disorder, single episode, unspecified; G89.29 Other chronic pain; Z60.2 Problems related to living alone; J20.9 Acute bronchitis, unspecified; G40.909 Epilepsy, unspecified, not intractable, without status epilepticus; I10 Essential (primary) hypertension; I48.91 Unspecified atrial fibrillation; K29.00 Acute gastritis without bleeding; M06.9 Rheumatoid arthritis, unspecified; M79.7 Fibromyalgia; Z86.19 Personal history of other infectious and parasitic diseases; Z90.49 Acquired absence of other specified parts of digestive tract; Z88.2 Allergy status to sulfonamides; Z88.1 Allergy status to other antibiotic agents; Z88.8 Allergy status to other drugs, medicaments and biological substances; Z68.29 Body mass index [BMI] 29.0-29.9, adult; Z90.710 Acquired absence of both cervix and uterus
CPT/HCPCS: 36415; 71045; 74176; 80053; 80202; 81003; 82948; 83605; 83735; 84145; 85025; 85610; 85730; 87040; 87070; 87088; 93005; 94640; 94760; 97116; 97161; 97530; 97535; 99291; A6250; C1758; C9113; J0153; J0780; J1644; J1956; J2405; J2765; J2930; J3370; J3480; J3490; J7030; J7512; Q0163; Q9963

== ENCOUNTER 2017-12-04 14:01 | Emergency (ER) | payer MEDICARE, MEDICAID ==
[~2017-12-04] VITALS: Ht 160 cm; Wt 59.0 kg
[~2017-12-04 14:01] MED LIST changes: +ASCO500C15 PO; +ATR0.5NEB NEB; +CHOL4PAC19; +DIPH25CA83 PO; +DULR RC; +FAMO-128 PO; +FERR-116 PO; -FLUO10CA28 PO; +FLUO20CA39 PO; -FLUT1BLS3 PO; -FURO-150 PO; +LACTC PO; +MAGN400C PO; +MAGN400O6 PO; +MULT-1085 PO; +NA P133E4 RC; +OXYC-145 PO; +UMEC62.5 IH; +VANC1VIA21 IV; +VANC50SO PO
[2017-12-04 14:07] VITALS: BP 104/54
[2017-12-04] MEDS ORDERED: normal saline 1000ML IV soln IV ONE (14:15)
[2017-12-04 15:20] LABS: CLARITY,URINE CLEAR (Clear); COLOR,URINE YELLOW (Yellow); GLUCOSE, URINE NEGATIVE (Neg); KETONES,URINE NEGATIVE (Neg); LEUKOCYTE ESTERASE ,URINE NEGATIVE (Neg); NITRITES, URINE NEGATIVE (Neg); OCCULT BLOOD,URINE SMALL (Neg); PH,URINE 5.5 (4.8-8.0); PROTEIN,URINE NEGATIVE (Neg); UROBILINOGEN,URINE 0.2 E.U/dL (0.2-1.0)
[2017-12-04 15:29] LABS: BASOPHILS % (AUTO) 0.4 % (0-1); EOSINOPHILS # (AUTO) 0.7 X10'3 (0-0.9); EOSINOPHILS % (AUTO) 8.1 % (0-6); HEMATOCRIT 35.3 % (35.0-45.0); HEMOGLOBIN 11.5 g/dl (12.0-16.0); LYMPHOCYTES # (AUTO) 1.7 X10'3 (1.1-4.8); LYMPHOCYTES % (AUTO) 20.1 % (21-51); MEAN CORPUSCULAR HEMOGLOBIN 26.3 PG (27.0-31.0); MEAN CORPUSCULAR HGB CONC 32.5 % (33.0-36.5); MEAN PLATELET VOLUME 7.5 FL (7.4-10.4); MONOCYTES % (AUTO) 12.1 % (2-12); NEUTROPHILS # (AUTO) 5.1 X10'3 (1.8-7.7); NEUTROPHILS % (AUTO) 59.3 % (42-75); PLATELET COUNT 236 X10'3 (140-440); RED BLOOD COUNT 4.36 X10'6 (4.20-5.60); RED CELL DISTRIBUTION WIDTH 18.6 % (11.5-14.5); WHITE BLOOD COUNT 8.5 X10'3 (4.5-11.0)
[2017-12-04 15:37] LABS: UA COLLECTION TYPE STRAIGHT CATH
[2017-12-04 15:40] LABS: RBC,URINE 0-2 /HPF (0-2); WBC,URINE NONE SEEN /HPF (0-4)
[2017-12-04 15:41] LABS: BACTERIA,URINE NONE SEEN /HPF (Neg); SQUAMOUS EPITHELIAL CELL,UR FEW /LPF (FEW); TRANSITIONAL EPI CELLS,URINE FEW /HPF
[2017-12-04 15:42] LABS: CAL OXALATE CRYSTALS FEW /HPF (NEGATIVE); YEAST FEW /HPF (NEGATIVE)
[2017-12-04 15:43] LABS: ANISOCYTOSIS 2+; ELLIPTOCYTES 1+; PLATELET ESTIMATE NORMAL
[2017-12-04 15:44] LABS: ALANINE AMINOTRANSFERASE 54 U/L (12-78); ALBUMIN 2.3 G/DL (3.4-5.0); ALBUMIN/GLOBULIN RATIO 0.6 (1.1-1.5); ALKALINE PHOSPHATASE 140 IU/L (46-116); ANION GAP 6 (8-16); ASPARTATE AMINO TRANSFERASE 51 U/L (10-37); BILIRUBIN,TOTAL 0.1 MG/DL (0.1-1.0); BLOOD UREA NITROGEN 8 MG/DL (7-18); BUN/CREATININE RATIO 10.8 (6.6-38.0); CALCIUM 8.2 MG/DL (8.5-10.1); CHLORIDE 107 MMOL/L (99-107); CREATININE 0.74 MG/DL (0.40-0.90); GLUCOSE 102 MG/DL (70-104); POTASSIUM 3.6 MMOL/L (3.5-5.1); SODIUM 141 MMOL/L (135-145); TOTAL CARBON DIOXIDE 28.2 MMOL/L (24-32); TOTAL PROTEIN 6.2 G/DL (6.4-8.2); eGFR 77 ML/MIN
== END 2017-12-04 17:00 | disposition home or self-care (01) ==
LOC: ER 14:02
DX: R19.7 Diarrhea, unspecified (principal); R53.1 Weakness; B96.89 Other specified bacterial agents as the cause of diseases classified elsewhere; K44.9 Diaphragmatic hernia without obstruction or gangrene; I48.91 Unspecified atrial fibrillation; E78.00 Pure hypercholesterolemia, unspecified; J44.9 Chronic obstructive pulmonary disease, unspecified; E11.9 Type 2 diabetes mellitus without complications; G89.29 Other chronic pain; M79.7 Fibromyalgia; M06.9 Rheumatoid arthritis, unspecified; Z90.49 Acquired absence of other specified parts of digestive tract; Z90.710 Acquired absence of both cervix and uterus; Z90.89 Acquired absence of other organs; Z88.2 Allergy status to sulfonamides; Z88.8 Allergy status to other drugs, medicaments and biological substances; Z79.899 Other long term (current) drug therapy; Z79.2 Long term (current) use of antibiotics
CPT/HCPCS: 36415; 71045; 73610; 80053; 81001; 83605; 84145; 85025; 87040; 93005; 96360; 96361; 99285

== ENCOUNTER 2019-05-12 12:50 | Emergency (ER) | payer MEDICARE, MEDICAID ==
[~2019-05-12] VITALS: Ht 157.5 cm; Wt 85.0 kg
--- NOTE | 2019-05-12 13:21 | NUR ---
Note ramiladiane in EDM - 05/12/19 at 1323 by [id number] Pt recieved from BLS unit. Hooked to monitor and found to have HR of 160's. Pt talking and scooted herself to the gurney. IV started and o2 started at 2L for sast
[2019-05-12] MEDS ORDERED: diltiazem 5mg/ml 5ml inj. IV ONE (13:30)
[2019-05-12] MEDS ORDERED: normal saline 1000ml 1,000 ML IV ONE (13:30)
[2019-05-12 13:51] LABS: BASOPHILS # (AUTO) 0.1 X10'3 (0-0.2); BASOPHILS % (AUTO) 1.3 % (0-1); EOSINOPHILS # (AUTO) 0.2 X10'3 (0-0.9); EOSINOPHILS % (AUTO) 2.8 % (0-6); HEMATOCRIT 38.2 % (35.0-45.0); HEMOGLOBIN 12.6 g/dl (12.0-16.0); LYMPHOCYTES # (AUTO) 2.6 X10'3 (1.1-4.8); LYMPHOCYTES % (AUTO) 29.9 % (21-51); MEAN CORPUSCULAR HEMOGLOBIN 31.6 PG (27.0-31.0); MEAN CORPUSCULAR HGB CONC 32.8 g/dL (33.0-36.5); MEAN CORPUSCULAR VOLUME 96.3 FL (78-98); MEAN PLATELET VOLUME 8.4 FL (7.4-10.4); MONOCYTES # (AUTO) 0.8 X10'3 (0-0.9); MONOCYTES % (AUTO) 9.2 % (2-12); NEUTROPHILS # (AUTO) 4.9 X10'3 (1.8-7.7); NEUTROPHILS % (AUTO) 56.8 % (42-75); PLATELET COUNT 185 X10'3 (140-440); RED BLOOD COUNT 3.97 X10'6 (4.20-5.60); WHITE BLOOD COUNT 8.6 X10'3 (4.5-11.0)
[2019-05-12 14:05] LABS: ALANINE AMINOTRANSFERASE 22 U/L (12-78); ALBUMIN 2.7 G/DL (3.4-5.0); ALBUMIN/GLOBULIN RATIO 0.6 (1.1-1.5); ALKALINE PHOSPHATASE 72 IU/L (46-116); ANION GAP 4 (8-16); BILIRUBIN,TOTAL 0.3 MG/DL (0.1-1.0); BLOOD UREA NITROGEN 12 MG/DL (7-18); CALCIUM 8.2 MG/DL (8.5-10.1); CHLORIDE 108 MMOL/L (99-107); GLUCOSE 125 MG/DL (70-104); SODIUM 139 MMOL/L (135-145); TOTAL CARBON DIOXIDE 26.7 MMOL/L (24-32); TOTAL PROTEIN 7.2 G/DL (6.4-8.2); eGFR > 90 ML/MIN
[2019-05-12 14:10] LABS: ASPARTATE AMINO TRANSFERASE 38 U/L (10-37); POTASSIUM 4.9 MMOL/L (3.5-5.1)
[2019-05-12 14:13] LABS: MAGNESIUM 1.9 MG/DL (1.5-2.4)
[2019-05-12 14:57] LABS: CLARITY,URINE CLOUDY (Clear); COLOR,URINE YELLOW (Yellow); GLUCOSE, URINE NEGATIVE (Neg); KETONES,URINE NEGATIVE (Neg); LEUKOCYTE ESTERASE ,URINE LARGE (Neg); NITRITES, URINE POSITIVE (Neg); OCCULT BLOOD,URINE TRACE-INTACT (Neg); PROTEIN,URINE NEGATIVE (Neg); UROBILINOGEN,URINE 0.2 E.U/dL (0.2-1.0)
[2019-05-12 14:59] LABS: UA COLLECTION TYPE CLN CATCH MIDSTREAM
[2019-05-12 15:03] LABS: BACTERIA,URINE 4+ /HPF (Neg); MUCUS STRANDS NONE SEEN /LPF (Neg); RBC,URINE 0-2 /HPF (0-2); SQUAMOUS EPITHELIAL CELL,UR NONE SEEN /LPF (FEW); WBC CLUMPS,URINE MODERATE /HPF (NEGATIVE); WBC,URINE TNTC /HPF (0-4)
[2019-05-12] MEDS ORDERED: NITR100C6 PO (15:14)
[2019-05-12] MEDS ORDERED: CefTRIAXone 2gm/D5W 50ml 50 ML IV ONE (15:15)
[2019-05-12] MEDS ORDERED: metoprolol succinate 25mg (24-HOUR) SR. Tablet PO ONE (15:20)
[2019-05-12 15:29] VITALS: BP 116/84
== END 2019-05-12 15:31 | disposition home or self-care (01) ==
LOC: ER 12:51
DX: I48.20 Chronic atrial fibrillation, unspecified (principal); N39.0 Urinary tract infection, site not specified; E78.00 Pure hypercholesterolemia, unspecified; J44.9 Chronic obstructive pulmonary disease, unspecified; E11.9 Type 2 diabetes mellitus without complications; G89.29 Other chronic pain; M79.7 Fibromyalgia; M06.9 Rheumatoid arthritis, unspecified; Z90.49 Acquired absence of other specified parts of digestive tract; Z90.710 Acquired absence of both cervix and uterus; Z98.890 Other specified postprocedural states; Z87.01 Personal history of pneumonia (recurrent); Z88.8 Allergy status to other drugs, medicaments and biological substances; Z88.2 Allergy status to sulfonamides; Z88.1 Allergy status to other antibiotic agents; Z79.899 Other long term (current) drug therapy
CPT/HCPCS: 36415; 71045; 80053; 81001; 83735; 83880; 84443; 84484; 85025; 87077; 87088; 87186; 93005; 96374; 99284; J7030; J3490

== ENCOUNTER 2020-12-12 20:24 | Emergency (ER) | payer MEDICARE, MEDICAID ==
[~2020-12-12] VITALS: Ht 162.6 cm; Wt 110.0 kg
[~2020-12-12 20:24] MED LIST changes: +AMIO200T61 PO; +APIX5TAB3 PO; -ASCO500C15 PO; -ATOR40TA71 PO; +ATOR40TA72 PO; -ATR0.5NEB NEB; -CHOL4PAC19; -DIPH25CA83 PO; -DONE23TA7 PO; -DULR RC; -FAMO-128 PO; -FERR-116 PO; +FLUO-167 PO; -FLUO20CA39 PO; -GABA-338 PO; -KEP500T PO; -LACTC PO; +LEVE500T PO; +LEVO100T9 PO; +LOPE2CAP PO; -MAGN400C PO; -MAGN400O6 PO; +METO-395 PO; -MONT10TA21 PO; +MONT10TA32 PO; -MULT-1085 PO; -NA P133E4 RC; +OMEP-50 PO; -ONDA4TAB6 PO; +OXYB5TAB16 PO; -OXYB5TAB29 PO; -OXYC-145 PO; +OXYC1TAB17 PO; +POTA10TA36 PO; +PRE5T PO; +PRIM250T8 PO; -PRIM50TA PO; +PROM25TA14 PO; -SOTA80TA73 PO; +SUCR1TAB PO; +SULF500T59 PO; +SUMA100T16 PO; -SUMA50TA PO; +TIOT18CA3 PO; -TIOT18CA7 IH; -UMEC62.5 IH; -VANC1VIA21 IV; -VANC50SO PO
[2020-12-12 20:46] VITALS: BP 120/63
[2020-12-12 21:09] LABS: BASOPHILS # (AUTO) 0.1 X10'3 (0-0.2); BASOPHILS % (AUTO) 0.5 % (0-1); EOSINOPHILS # (AUTO) 0.1 X10'3 (0-0.9); EOSINOPHILS % (AUTO) 0.5 % (0-6); HEMATOCRIT 29.2 % (35.0-45.0); HEMOGLOBIN 9.7 g/dl (12.0-16.0); LYMPHOCYTES # (AUTO) 1.3 X10'3 (1.1-4.8); MEAN CORPUSCULAR HEMOGLOBIN 30.5 PG (27.0-31.0); MEAN CORPUSCULAR HGB CONC 33.3 g/dL (33.0-36.5); MEAN CORPUSCULAR VOLUME 91.7 FL (78-98); MEAN PLATELET VOLUME 8.1 FL (7.4-10.4); MONOCYTES # (AUTO) 0.8 X10'3 (0-0.9); NEUTROPHILS # (AUTO) 14.1 X10'3 (1.8-7.7); PLATELET COUNT 393 X10'3 (140-440); RED BLOOD COUNT 3.19 X10'6 (4.20-5.60); RED CELL DISTRIBUTION WIDTH 15.1 % (11.5-14.5); WHITE BLOOD COUNT 16.4 X10'3 (4.5-11.0)
== END 2020-12-12 22:12 | disposition short-term general hospital (02) ==
LOC: ER 20:25
DX: J18.9 Pneumonia, unspecified organism (principal); I48.91 Unspecified atrial fibrillation; E78.00 Pure hypercholesterolemia, unspecified; J43.9 Emphysema, unspecified; E11.9 Type 2 diabetes mellitus without complications; G89.29 Other chronic pain; Z86.69 Personal history of other diseases of the nervous system and sense organs; Z87.01 Personal history of pneumonia (recurrent); Z90.89 Acquired absence of other organs; Z90.49 Acquired absence of other specified parts of digestive tract; Z90.710 Acquired absence of both cervix and uterus; Z98.890 Other specified postprocedural states; Z60.2 Problems related to living alone; Z88.2 Allergy status to sulfonamides; Z88.8 Allergy status to other drugs, medicaments and biological substances; Z88.1 Allergy status to other antibiotic agents; Z79.899 Other long term (current) drug therapy
CPT/HCPCS: 36415; 85025; 99285

== ENCOUNTER 2020-12-14 21:54 | Emergency (ER) | payer MEDICARE, MEDICAID ==
[~2020-12-14] VITALS: Ht 157.5 cm; Wt 90.0 kg
[2020-12-14 23:45] VITALS: BP 132/74
== END 2020-12-15 04:11 | disposition short-term general hospital (02) ==
LOC: ER 21:55
DX: J43.9 Emphysema, unspecified (principal); F03.91 Unspecified dementia, unspecified severity, with behavioral disturbance; G40.909 Epilepsy, unspecified, not intractable, without status epilepticus; I48.91 Unspecified atrial fibrillation; E78.00 Pure hypercholesterolemia, unspecified; E11.9 Type 2 diabetes mellitus without complications; G89.29 Other chronic pain; M79.7 Fibromyalgia; M06.9 Rheumatoid arthritis, unspecified; Z90.49 Acquired absence of other specified parts of digestive tract; Z90.710 Acquired absence of both cervix and uterus; Z88.1 Allergy status to other antibiotic agents; Z88.2 Allergy status to sulfonamides; Z88.8 Allergy status to other drugs, medicaments and biological substances; Z79.899 Other long term (current) drug therapy
CPT/HCPCS: 99284; 99285